=== PATIENT | female | born 1975 | race Caucasian/White ===

== ENCOUNTER 2017-01-11 00:18 | Emergency (ER) | payer MEDICAID ==
[2017-01-11 02:15] VITALS: BP 134/75
== END 2017-01-11 02:15 | disposition home or self-care (01) ==
LOC: ED 00:18
DX: S81.812A Laceration without foreign body, left lower leg, initial encounter (principal); W20.8XXA Other cause of strike by thrown, projected or falling object, initial encounter; Y93.E8 Activity, other personal hygiene; Y99.8 Other external cause status; Y92.89 Other specified places as the place of occurrence of the external cause
CPT/HCPCS: 90715; J2001

== ENCOUNTER 2017-01-14 10:24 | Emergency (ER) | payer MEDICAID ==
[~2017-01-14] VITALS: Ht 165.1 cm; Wt 69.9 kg
[2017-01-14 11:55] VITALS: BP 120/69
== END 2017-01-14 11:55 | disposition home or self-care (01) ==
LOC: ED 10:24
DX: S81.812D Laceration without foreign body, left lower leg, subsequent encounter (principal); X58.XXXD Exposure to other specified factors, subsequent encounter; Y99.8 Other external cause status; Y92.89 Other specified places as the place of occurrence of the external cause

== ENCOUNTER 2017-01-21 12:58 | Emergency (ER) | payer MEDICAID ==
[~2017-01-21] VITALS: Ht 154.9 cm; Wt 69.0 kg
[2017-01-21 13:41] VITALS: BP 130/84
== END 2017-01-21 13:41 | disposition home or self-care (01) ==
LOC: ED 12:58
DX: S81.812D Laceration without foreign body, left lower leg, subsequent encounter (principal); X58.XXXD Exposure to other specified factors, subsequent encounter; Y99.8 Other external cause status; Y92.89 Other specified places as the place of occurrence of the external cause